=== PATIENT | male | born 1995 | race Hispanic/Latino ===

== ENCOUNTER 2023-06-03 14:49 | Emergency (ER) | payer SELFPAY ==
[2023-06-03] MEDS ORDERED: Dicyclomine 20 MG TAB ONE (16:25)
[2023-06-03] MEDS ORDERED: Ondansetron PF 4 MG/2 ML Vial ONE (16:26)
== END 2023-06-03 16:48 | disposition home or self-care (01) ==
LOC: ERS 14:49
DX: F11.13 Opioid abuse with withdrawal (principal); F14.13 Cocaine abuse, unspecified with withdrawal; F17.210 Nicotine dependence, cigarettes, uncomplicated
CPT/HCPCS: 96374; J2405